=== PATIENT | male | born 1985 | race Caucasian/White ===

== ENCOUNTER 2021-05-31 13:26 | Inpatient (IN) | payer MEDICAID, OTHER ==
[~2021-05-31] VITALS: Ht 167.6 cm; Wt 74.8 kg
[~2021-05-31 13:26] MED LIST: DIVA-112 PO; RISP3TAB35 PO; ZIPR60CA2 PO
[2021-05-31] MEDS ORDERED: HALOPERIDOL 5 MG TABLET PO ONE (14:15)
[2021-05-31 14:30] LABS: BASOPHILS % (AUTO) 0.8 % (0.0-2.0); EOSINOPHILS % (AUTO) 0.9 % (1.0-6.0); HEMATOCRIT 42.2 % (41-53); HEMOGLOBIN 13.6 g/dL (13.5-17.5); LYMPHOCYTES # (AUTO) 1.4 K/uL (1.0-4.8); LYMPHOCYTES % (AUTO) 22.3 % (22.0-44.0); MEAN CORPUSCULAR HEMOGLOBIN 29.5 pg (26.0-34.0); MEAN CORPUSCULAR HGB CONC 32.3 G/dL (31.0-37.0); MEAN CORPUSCULAR VOLUME 91 fL (80-100); MONOCYTES # (AUTO) 0.4 K/uL (0.1-1.0); MONOCYTES % (AUTO) 6.3 % (2.0-9.0); NEUTROPHILS # (AUTO) 4.3 K/uL (1.8-7.7); NEUTROPHILS % (AUTO) 69.7 % (40.0-70.0); PLATELET COUNT (AUTO) 200 K/uL (150-450); RED BLOOD CELL COUNT(AUTO) 4.61 MIL/uL (4.50-5.90); RED CELL DISTRIBUTION WIDTH 14.1 % (11.5-14.5)
[2021-05-31 14:40] LABS: ANION GAP 3 mmol/L (8-16); CALCIUM, TOTAL 8.8 mg/dL (8.8-10.5); CARBON DIOXIDE 32 mmol/L (22-29); CHLORIDE 107 mmol/L (98-107); CREATININE 0.75 mg/dL (0.60-1.30); GLOMERULAR FILTR. RATE CALC > 60 mL/min (>60); GLUCOSE,RANDOM 101 mg/dL (70-110); POTASSIUM 4.7 mmol/L (3.5-5.1); SODIUM SERUM 142 mmol/L (136-145); UREA NITROGEN, BLOOD 11 mg/dL (7-18)
[2021-05-31 14:46] LABS: ALANINE AMINOTRANSFERASE 114 U/L (12-78); ALBUMIN 3.8 g/dL (3.4-5.0); ALKALINE PHOSPHATASE 129 U/L (46-116); ASPARTATE AMINOTRANSFERASE 61 U/L (15-37); BILIRUBIN,TOTAL 0.3 mg/dL (0.1-1.0); TOTAL PROTEIN, SERUM 7.2 g/dL (6.4-8.2)
[2021-05-31 14:47] LABS: VALPROIC ACID < 3 mcg/mL (50-100)
[2021-05-31 15:22] LABS: AMPHET/METH SCREEN,URINE NEGATIVE (NEGATIVE); BARBITURATE SCREEN, URINE NEGATIVE (NEGATIVE); BENZODIAZEPINES SCREEN,URINE NEGATIVE (NEGATIVE); CANNABINOID SCREEN,URINE NEGATIVE (NEGATIVE); COCAINE SCREEN,URINE NEGATIVE (NEGATIVE); METHADONE SCREEN, URINE NEGATIVE (NEGATIVE); OPIATE SCREEN,URINE NEGATIVE (NEGATIVE)
[2021-05-31 15:26] LABS: PHENCYCLIDINE SCREEN,URINE NEGATIVE (NEGATIVE)
[2021-05-31] MEDS ORDERED: ZOLPIDEM TARTRATE 10 MG TABLET PO PRN (16:00)
[2021-05-31 19:14] LABS: COVID AG,FIA SOURCE NASOPHARYNGEAL
[2021-06-01] VITALS: BP 110/70
[2021-06-01] MEDS ORDERED: MAGNESIUM HYDROXIDE SUSPENSION 30 ML UDCUP PO PRN (07:15)
[2021-06-01] MEDS ORDERED: CloNIDine HCL 0.1 MG TABLET PO PRN (07:15)
[2021-06-01] MEDS ORDERED: IBUPROFEN 400 MG TABLET PO PRN (07:15)
[2021-06-01] MEDS ORDERED: MAG HYDROX/AL HYDROX/SIMETH ES 30 ML SUSPENSION UDCUP PO PRN (07:15)
[2021-06-01] MEDS ORDERED: NICOTINE 14 MG/24 HOUR PATCH TD PRN (07:15)
[2021-06-01] MEDS ORDERED: ALBUTEROL SULFATE HFA 90 MCG/PUFF 8 GM INHALER IH PRN (07:15)
[2021-06-01] MEDS ORDERED: DOCUSATE SODIUM 100 MG CAPSULE PO PRN (07:15)
[2021-06-01] MEDS ORDERED: GuaiFENesin/D-METHORPHAN [SUGAR-FREE] 200-20MG/10 ML SYRUP UDCUP PO PRN (07:15)
[2021-06-01] MEDS ORDERED: ACETAMINOPHEN 325 MG TABLET PO PRN (07:15)
[2021-06-01] MEDS ORDERED: PETROLATUM,WHITE 28 GM JELLY TP PRN (07:15)
[2021-06-01] MEDS ORDERED: LOPERAMIDE HCL 2 MG CAPSULE PO PRN (07:15)
[2021-06-01] MEDS ORDERED: ONDANSETRON HCL 4 MG TABLET PO PRN (07:15)
[2021-06-01 08:32] LABS: CHOL/HDL RATIO 5.5 (4.2-7.3)
[2021-06-01] MEDS: HALOPERIDOL 5 MG TABLET PO PRN (11:10)
[2021-06-01] MEDS: LORazepam 2 MG TABLET PO PRN (11:10)
[2021-06-01] MEDS: FLUoxetine HCL 20 MG CAPSULE PO SCH (12:45)
[2021-06-01 15:07] VITALS: BP 101/61
[2021-06-01 16:16] VITALS: BP 111/71
[2021-06-01 20:10] VITALS: BP 112/68
[2021-06-01] MEDS: QUEtiapine FUMARATE 200 MG TABLET PO SCH (20:14)
[2021-06-01] MEDS: PRAZOSIN HCL 1 MG CAPSULE PO SCH (20:14)
[2021-06-02 05:36] VITALS: BP 101/64
[2021-06-02 08:14] VITALS: BP 112/68
[2021-06-02] MEDS: HALOPERIDOL 5 MG TABLET PO PRN (08:25)
[2021-06-02] MEDS: FLUoxetine HCL 20 MG CAPSULE PO SCH (08:25)
[2021-06-02 16:20] VITALS: BP 109/60
[2021-06-02 20:31] VITALS: BP 103/64
[2021-06-02] MEDS: PRAZOSIN HCL 1 MG CAPSULE PO SCH (20:33)
[2021-06-02] MEDS: QUEtiapine FUMARATE 200 MG TABLET PO SCH (20:33)
[2021-06-03 06:12] VITALS: BP 101/59
[2021-06-03 08:22] VITALS: BP 104/71
[2021-06-03] MEDS: FLUoxetine HCL 20 MG CAPSULE PO SCH (09:17)
[2021-06-03 16:25] VITALS: BP 107/61
[2021-06-03] MEDS: QUEtiapine FUMARATE 200 MG TABLET PO SCH (21:08)
[2021-06-03] MEDS: PRAZOSIN HCL 1 MG CAPSULE PO SCH (21:09)
[2021-06-04 05:42] VITALS: BP 112/60
[2021-06-04 08:32] VITALS: BP 116/79
[2021-06-04] MEDS: FLUoxetine HCL 20 MG CAPSULE PO SCH (08:55)
[2021-06-04 16:21] VITALS: BP 115/72
[2021-06-04] MEDS: HALOPERIDOL 5 MG TABLET PO PRN (16:23)
[2021-06-04] MEDS: PRAZOSIN HCL 1 MG CAPSULE PO SCH (20:32)
[2021-06-04] MEDS: QUEtiapine FUMARATE 200 MG TABLET PO SCH (20:32)
[2021-06-05 01:23] VITALS: BP 110/73
[2021-06-05 06:52] LABS: COVID AG,FIA SOURCE NASOPHARYNGEAL
[2021-06-05 08:27] VITALS: BP 119/75
[2021-06-05] MEDS: FLUoxetine HCL 20 MG CAPSULE PO SCH (08:58)
[2021-06-05] MEDS: HALOPERIDOL 5 MG TABLET PO PRN (14:13)
[2021-06-05] MEDS: LORazepam 2 MG TABLET PO PRN (15:51)
[2021-06-05 16:29] VITALS: BP 133/86
[2021-06-05 20:47] VITALS: BP 117/62
[2021-06-05] MEDS: QUEtiapine FUMARATE 200 MG TABLET PO SCH (20:48)
[2021-06-05] MEDS: PRAZOSIN HCL 1 MG CAPSULE PO SCH (20:49)
[2021-06-06 06:16] VITALS: BP 112/63
[2021-06-06 08:37] VITALS: BP 109/60
[2021-06-06] MEDS: FLUoxetine HCL 20 MG CAPSULE PO SCH (09:04)
[2021-06-06 16:17] VITALS: BP 116/62
[2021-06-06] MEDS: QUEtiapine FUMARATE 300 MG TABLET PO SCH (20:35)
[2021-06-06] MEDS: PRAZOSIN HCL 1 MG CAPSULE PO SCH (20:46)
[2021-06-07 01:37] VITALS: BP 110/73
[2021-06-07 08:38] VITALS: BP 114/62
[2021-06-07] MEDS: HALOPERIDOL 5 MG TABLET PO PRN ×2 (09:12→14:50)
[2021-06-07] MEDS: FLUoxetine HCL 20 MG CAPSULE PO SCH (09:12)
[2021-06-07] MEDS: OMEGA-3/DHA/EPA/FISH OIL 1,000 MG CAPSULE PO SCH (09:12)
[2021-06-07 16:18] VITALS: BP 112/72
[2021-06-07] MEDS: PRAZOSIN HCL 1 MG CAPSULE PO SCH (20:21)
[2021-06-07] MEDS: QUEtiapine FUMARATE 300 MG TABLET PO SCH (20:22)
[2021-06-07 21:00] VITALS: BP 106/59
[2021-06-08 01:13] VITALS: BP 108/62
[2021-06-08 08:14] VITALS: BP 85/53
[2021-06-08] MEDS: OMEGA-3/DHA/EPA/FISH OIL 1,000 MG CAPSULE PO SCH (08:16)
[2021-06-08] MEDS: FLUoxetine HCL 20 MG CAPSULE PO SCH (08:16)
[2021-06-08] MEDS: HALOPERIDOL 5 MG TABLET PO PRN (16:24)
[2021-06-08] MEDS: LORazepam 2 MG TABLET PO PRN (16:24)
[2021-06-08 16:26] VITALS: BP 112/63
[2021-06-08] MEDS: PRAZOSIN HCL 1 MG CAPSULE PO SCH (20:44)
[2021-06-08] MEDS: QUEtiapine FUMARATE 300 MG TABLET PO SCH (20:44)
[2021-06-09 01:01] VITALS: BP 109/61
[2021-06-09 08:16] VITALS: BP 100/64
[2021-06-09] MEDS: FLUoxetine HCL 20 MG CAPSULE PO SCH (08:30)
[2021-06-09] MEDS: OMEGA-3/DHA/EPA/FISH OIL 1,000 MG CAPSULE PO SCH (08:30)
[2021-06-09] MEDS ORDERED: FLUoxetine HCL 20 MG CAPSULE PO ONE (09:45)
[2021-06-09] MEDS: HALOPERIDOL 5 MG TABLET PO PRN (15:41)
[2021-06-09] MEDS: LORazepam 2 MG TABLET PO PRN (15:42)
[2021-06-09 16:33] VITALS: BP 118/67
[2021-06-09] MEDS: QUEtiapine FUMARATE 300 MG TABLET PO SCH (20:35)
[2021-06-09 20:36] VITALS: BP 105/65
[2021-06-09] MEDS: PRAZOSIN HCL 1 MG CAPSULE PO SCH (20:36)
[2021-06-10 01:18] VITALS: BP 100/60
[2021-06-10] MEDS: OMEGA-3/DHA/EPA/FISH OIL 1,000 MG CAPSULE PO SCH (08:07)
[2021-06-10] MEDS: FLUoxetine HCL 20 MG CAPSULE PO SCH (08:07)
[2021-06-10 08:40] VITALS: BP 136/88
[2021-06-10] MEDS: QUEtiapine FUMARATE 100 MG TABLET PO SCH (12:14)
[2021-06-10 16:34] VITALS: BP 106/65
[2021-06-10] MEDS: HALOPERIDOL 5 MG TABLET PO PRN (18:05)
[2021-06-10 20:59] VITALS: BP 115/62
[2021-06-10] MEDS: PRAZOSIN HCL 1 MG CAPSULE PO SCH (20:59)
[2021-06-10] MEDS: QUEtiapine FUMARATE 300 MG TABLET PO SCH (20:59)
[2021-06-11 01:09] VITALS: BP 111/68
[2021-06-11] MEDS: OMEGA-3/DHA/EPA/FISH OIL 1,000 MG CAPSULE PO SCH (09:40)
[2021-06-11] MEDS: FLUoxetine HCL 20 MG CAPSULE PO SCH (09:41)
[2021-06-11] MEDS: QUEtiapine FUMARATE 100 MG TABLET PO SCH (09:41)
[2021-06-11 10:49] VITALS: BP 106/62
[2021-06-11] MEDS: HALOPERIDOL 5 MG TABLET PO PRN (15:44)
[2021-06-11 16:21] VITALS: BP 120/71
[2021-06-11 20:43] VITALS: BP 116/61
[2021-06-11] MEDS: QUEtiapine FUMARATE 300 MG TABLET PO SCH (20:45)
[2021-06-11] MEDS: PRAZOSIN HCL 1 MG CAPSULE PO SCH (20:46)
[2021-06-12 01:53] VITALS: BP 105/79
[2021-06-12 08:14] VITALS: BP 107/66
[2021-06-12] MEDS: OMEGA-3/DHA/EPA/FISH OIL 1,000 MG CAPSULE PO SCH (09:49)
[2021-06-12] MEDS: FLUoxetine HCL 20 MG CAPSULE PO SCH (09:49)
[2021-06-12] MEDS: QUEtiapine FUMARATE 100 MG TABLET PO SCH (09:49)
[2021-06-12] MEDS: LORazepam 2 MG TABLET PO PRN (09:54)
[2021-06-12] MEDS ORDERED: QUET300T2 PO (12:00)
[2021-06-12] MEDS ORDERED: QUET100T PO (12:00)
[2021-06-12] MEDS ORDERED: PRAZ1 PO (12:01)
[2021-06-12] MEDS ORDERED: FLUO20CA36 PO (12:02)
[2021-06-12] MEDS ORDERED: OMEG-135 PO (12:02)
[2021-06-12 16:16] VITALS: BP 108/62
== END 2021-06-12 15:00 | disposition home or self-care (01) | DRG 750 ==
LOC: EMS 13:30 → B3A 17:27 → B2S 22:31
PROVIDERS: ADMIT Psychiatry & Neurology Psychiatry; ATTEND Psychiatry & Neurology Psychiatry
DX: F25.1 Schizoaffective disorder, depressive type (principal); R45.851 Suicidal ideations; Z59.00 Homelessness unspecified; E78.5 Hyperlipidemia, unspecified; F25.9 Schizoaffective disorder, unspecified; F90.9 Attention-deficit hyperactivity disorder, unspecified type; Z20.822 Contact with and (suspected) exposure to COVID-19; R74.01 Elevation of levels of liver transaminase levels; R10.13 Epigastric pain; F43.12 Post-traumatic stress disorder, chronic; Z91.51 Personal history of suicidal behavior
CPT/HCPCS: 80053; 80061; 80164; 85025; 99285; G0480

== ENCOUNTER 2022-04-22 12:47 | Inpatient (IN) | payer MEDICAID, OTHER ==
[~2022-04-22] VITALS: Ht 167.6 cm; Wt 69.7 kg
[~2022-04-22 12:47] MED LIST changes: -DIVA-112 PO; +FLUO20CA36 PO; +OMEG-135 PO; +PRAZ1 PO; +QUET100T PO; +QUET300T2 PO; -RISP3TAB35 PO; -ZIPR60CA2 PO
[2022-04-22 14:24] LABS: BASOPHILS % (AUTO) 0.9 % (0.0-2.0); EOSINOPHILS % (AUTO) 1.8 % (1.0-6.0); HEMATOCRIT 43.8 % (41-53); HEMOGLOBIN 14.3 g/dL (13.5-17.5); LYMPHOCYTES # (AUTO) 1.9 K/uL (1.0-4.8); LYMPHOCYTES % (AUTO) 24.3 % (22.0-44.0); MEAN CORPUSCULAR HEMOGLOBIN 29.5 pg (26.0-34.0); MEAN CORPUSCULAR HGB CONC 32.7 G/dL (31.0-37.0); MEAN CORPUSCULAR VOLUME 90 fL (80-100); MONOCYTES # (AUTO) 0.5 K/uL (0.1-1.0); MONOCYTES % (AUTO) 6.7 % (2.0-9.0); NEUTROPHILS # (AUTO) 5.3 K/uL (1.8-7.7); NEUTROPHILS % (AUTO) 66.3 % (40.0-70.0); PLATELET COUNT (AUTO) 240 K/uL (150-450); RED BLOOD CELL COUNT(AUTO) 4.84 MIL/uL (4.50-5.90); RED CELL DISTRIBUTION WIDTH 13.5 % (11.5-14.5)
[2022-04-22 14:29] LABS: ANION GAP 2 mmol/L (8-16); CALCIUM, TOTAL 9.1 mg/dL (8.8-10.5); CARBON DIOXIDE 31 mmol/L (22-29); CHLORIDE 103 mmol/L (98-107); GLOMERULAR FILTR. RATE CALC > 60 mL/min (>60); GLUCOSE,RANDOM 99 mg/dL (70-110); POTASSIUM 4.3 mmol/L (3.5-5.1); SODIUM SERUM 136 mmol/L (136-145); UREA NITROGEN, BLOOD 10 mg/dL (7-18)
[2022-04-22 14:34] LABS: ALANINE AMINOTRANSFERASE 204 U/L (12-78); ALBUMIN 3.4 g/dL (3.4-5.0); ALKALINE PHOSPHATASE 209 U/L (46-116); ASPARTATE AMINOTRANSFERASE 105 U/L (15-37); BILIRUBIN,TOTAL 0.2 mg/dL (0.1-1.0); TOTAL PROTEIN, SERUM 7.3 g/dL (6.4-8.2)
[2022-04-22] MEDS ORDERED: OLANZapine 5 MG RAPDIS TABLET PO PRN (15:15)
[2022-04-22] MEDS ORDERED: ZOLPIDEM TARTRATE 10 MG TABLET PO PRN (15:15)
[2022-04-22] MEDS ORDERED: LORazepam 2 MG TABLET PO PRN (15:15)
[2022-04-22 16:58] LABS: COVID AG,FIA SOURCE NASAL SWAB
[2022-04-22 17:01] LABS: APPEARANCE,URINE CLEAR (CLEAR); BILIRUBIN,URINE NEGATIVE (NEGATIVE); GLUCOSE, URINE (UA) NEGATIVE (NEGATIVE); KETONES,URINE NEGATIVE (NEGATIVE); LEUKOCYTE ESTERASE ,URINE NEGATIVE (NEGATIVE); NITRATE,URINE NEGATIVE (NEGATIVE); OCCULT BLOOD,URINE NEGATIVE (NEGATIVE); PROTEIN,URINE NEGATIVE (NEGATIVE); SPECIFIC GRAVITIY, URINE 1.019 (1.003-1.030); UROBILINOGEN,URINE <=1.0 mg/dL (<=1.0)
[2022-04-22 17:07] LABS: AMPHET/METH SCREEN,URINE NEGATIVE (NEGATIVE); BARBITURATE SCREEN, URINE NEGATIVE (NEGATIVE); BENZODIAZEPINES SCREEN,URINE NEGATIVE (NEGATIVE); CANNABINOID SCREEN,URINE NEGATIVE (NEGATIVE); COCAINE SCREEN,URINE NEGATIVE (NEGATIVE); METHADONE SCREEN, URINE NEGATIVE (NEGATIVE); OPIATE SCREEN,URINE NEGATIVE (NEGATIVE); PHENCYCLIDINE SCREEN,URINE NEGATIVE (NEGATIVE)
[2022-04-22 18:29] VITALS: BP 120/76
[2022-04-22] MEDS ORDERED: MAGNESIUM HYDROXIDE SUSPENSION 30 ML UDCUP PO PRN (18:30)
[2022-04-22] MEDS ORDERED: LOPERAMIDE HCL 2 MG CAPSULE PO PRN (18:30)
[2022-04-22] MEDS ORDERED: GuaiFENesin/D-METHORPHAN [SUGAR-FREE] 200-20MG/10 ML SYRUP UDCUP PO PRN (18:30)
[2022-04-22] MEDS ORDERED: PROMETHAZINE HCL 25 MG TABLET PO PRN (18:30)
[2022-04-22] MEDS ORDERED: MAG HYDROX/AL HYDROX/SIMETH ES 30 ML SUSPENSION UDCUP PO PRN (18:30)
[2022-04-22] MEDS ORDERED: TUBERCULIN, PURIFIED PROTEIN DERIVATIVE 5 TU/0.1 ML SYRINGE ID ONE (18:30)
[2022-04-22] MEDS ORDERED: OLANZapine 5 MG RAPDIS TABLET PO SCH (21:00)
[2022-04-22] MEDS: MELATONIN 5 MG TABLET PO SCH (21:18)
[2022-04-23 06:47] LABS: HEMOGLOBIN A1C 5.7 % (3.8-5.6)
[2022-04-23 07:04] LABS: CHOLESTEROL 184 mg/dL (131-200); FREE T4 (FREE THYROXINE) 0.75 ng/dL (0.76-1.46); HDL CHOLESTEROL 37 mg/dL (40-60); THYROID STIMULATING HORMONE 4.24 uIU/mL (0.36-3.74); TRIGLYCERIDES 453 mg/dL (15-150)
[2022-04-23] MEDS: FOLIC ACID 1 MG TABLET PO SCH (08:49)
[2022-04-23] MEDS: OMEGA-3/DHA/EPA/FISH OIL 1,000 MG CAPSULE PO SCH (08:49)
[2022-04-23] MEDS: MULTIVITAMINS WITH MINERALS, THERAPEUTIC TABLET PO SCH (08:49)
[2022-04-23] MEDS: THIAMINE 100 MG TABLET PO SCH ×2 (08:50→17:31)
[2022-04-23] MEDS: BuPROPion HCL XL 150 MG ER TABLET PO SCH (08:50)
[2022-04-23] MEDS: NALTREXONE HCL 50 MG TABLET PO SCH (08:50)
[2022-04-23 08:53] VITALS: BP 99/60
[2022-04-23 16:00] VITALS: BP 101/64
[2022-04-23] MEDS ORDERED: QUEtiapine FUMARATE 100 MG TABLET PO PRN (17:45)
[2022-04-23] MEDS: MELATONIN 5 MG TABLET PO SCH (20:28)
[2022-04-23] MEDS: QUEtiapine FUMARATE 300 MG TABLET PO SCH (20:29)
[2022-04-24 08:00] VITALS: BP 119/72
[2022-04-24 08:06] LABS: HEPATITIS C AB (EIA) <0.1 s/co ratio (0.0-0.9)
[2022-04-24] MEDS: THIAMINE 100 MG TABLET PO SCH ×2 (09:37→16:28)
[2022-04-24] MEDS: MULTIVITAMINS WITH MINERALS, THERAPEUTIC TABLET PO SCH (09:37)
[2022-04-24] MEDS: NALTREXONE HCL 50 MG TABLET PO SCH (09:38)
[2022-04-24] MEDS: FOLIC ACID 1 MG TABLET PO SCH (09:38)
[2022-04-24] MEDS: OMEGA-3/DHA/EPA/FISH OIL 1,000 MG CAPSULE PO SCH (09:38)
[2022-04-24] MEDS: BuPROPion HCL XL 150 MG ER TABLET PO SCH (09:38)
[2022-04-24 12:26] VITALS: BP 126/72
[2022-04-24] MEDS: ACETAMINOPHEN 325 MG TABLET PO PRN (12:26)
[2022-04-24 16:00] VITALS: BP 111/69
[2022-04-24] MEDS: GEMFIBROZIL 600 MG TABLET PO SCH (16:28)
[2022-04-24] MEDS: MELATONIN 5 MG TABLET PO SCH (21:21)
[2022-04-24] MEDS: QUEtiapine FUMARATE 300 MG TABLET PO SCH (21:21)
[2022-04-24] MEDS: HydrOXYzine PAMOATE 50 MG CAPSULE PO PRN (21:21)
[2022-04-25] MEDS: GEMFIBROZIL 600 MG TABLET PO SCH ×2 (06:45→16:46)
[2022-04-25] MEDS: OMEGA-3/DHA/EPA/FISH OIL 1,000 MG CAPSULE PO SCH (08:09)
[2022-04-25] MEDS: MULTIVITAMINS WITH MINERALS, THERAPEUTIC TABLET PO SCH (08:09)
[2022-04-25] MEDS: NALTREXONE HCL 50 MG TABLET PO SCH (08:09)
[2022-04-25] MEDS: THIAMINE 100 MG TABLET PO SCH ×2 (08:10→16:46)
[2022-04-25] MEDS: FOLIC ACID 1 MG TABLET PO SCH (08:10)
[2022-04-25] MEDS: BuPROPion HCL XL 150 MG ER TABLET PO SCH (08:10)
[2022-04-25 08:29] LABS: FREE T4 (FREE THYROXINE) 0.69 ng/dL (0.76-1.46); THYROID STIMULATING HORMONE 4.55 uIU/mL (0.36-3.74)
[2022-04-25 09:53] VITALS: BP 127/84
[2022-04-25] MEDS: LEVOTHYROXINE SODIUM 50 MCG TABLET PO SCH (11:16)
[2022-04-25 16:24] VITALS: BP 100/62
[2022-04-25 17:25] VITALS: BP 109/62
[2022-04-25] MEDS: ACETAMINOPHEN 325 MG TABLET PO PRN (17:25)
[2022-04-25] MEDS: QUEtiapine FUMARATE 300 MG TABLET PO SCH (21:55)
[2022-04-25] MEDS: HydrOXYzine PAMOATE 50 MG CAPSULE PO PRN (21:55)
[2022-04-25] MEDS: MELATONIN 5 MG TABLET PO SCH (21:55)
[2022-04-26] MEDS: GEMFIBROZIL 600 MG TABLET PO SCH ×2 (06:35→16:20)
[2022-04-26] MEDS: LEVOTHYROXINE SODIUM 50 MCG TABLET PO SCH (06:35)
[2022-04-26 08:00] VITALS: BP 115/71
[2022-04-26] MEDS: MULTIVITAMINS WITH MINERALS, THERAPEUTIC TABLET PO SCH (09:00)
[2022-04-26] MEDS: FOLIC ACID 1 MG TABLET PO SCH (09:00)
[2022-04-26] MEDS: OMEGA-3/DHA/EPA/FISH OIL 1,000 MG CAPSULE PO SCH (09:00)
[2022-04-26] MEDS: THIAMINE 100 MG TABLET PO SCH ×2 (09:00→16:20)
[2022-04-26] MEDS: BuPROPion HCL XL 150 MG ER TABLET PO SCH (09:00)
[2022-04-26] MEDS: NALTREXONE HCL 50 MG TABLET PO SCH (12:41)
[2022-04-26] MEDS ORDERED: HALOPERIDOL 5 MG TABLET PO PRN (16:15)
[2022-04-26 16:53] VITALS: BP 116/74
[2022-04-26] MEDS: MELATONIN 5 MG TABLET PO SCH (20:58)
[2022-04-26] MEDS: HALOPERIDOL 10 MG TABLET PO SCH (20:58)
[2022-04-27] MEDS: LEVOTHYROXINE SODIUM 50 MCG TABLET PO SCH (06:21)
[2022-04-27] MEDS: GEMFIBROZIL 600 MG TABLET PO SCH ×2 (06:21→16:06)
[2022-04-27 08:00] VITALS: BP 106/78
[2022-04-27] MEDS: OMEGA-3/DHA/EPA/FISH OIL 1,000 MG CAPSULE PO SCH (09:16)
[2022-04-27] MEDS: FOLIC ACID 1 MG TABLET PO SCH (09:16)
[2022-04-27] MEDS: THIAMINE 100 MG TABLET PO SCH ×2 (09:16→16:06)
[2022-04-27] MEDS: MULTIVITAMINS WITH MINERALS, THERAPEUTIC TABLET PO SCH (09:16)
[2022-04-27] MEDS: BuPROPion HCL XL 150 MG ER TABLET PO SCH (09:17)
[2022-04-27] MEDS: NALTREXONE HCL 50 MG TABLET PO SCH (09:17)
[2022-04-27 16:37] VITALS: BP 104/70
[2022-04-27] MEDS: MELATONIN 5 MG TABLET PO SCH (21:00)
[2022-04-27] MEDS: HALOPERIDOL 10 MG TABLET PO SCH (21:00)
[2022-04-28 05:57] LABS: COVID AG,FIA SOURCE NASAL SWAB
[2022-04-28] MEDS: LEVOTHYROXINE SODIUM 50 MCG TABLET PO SCH (06:24)
[2022-04-28] MEDS: GEMFIBROZIL 600 MG TABLET PO SCH ×2 (06:24→16:36)
[2022-04-28 07:55] LABS: ALBUMIN 3.3 g/dL (3.4-5.0); ALKALINE PHOSPHATASE 188 U/L (46-116); ANION GAP 4 mmol/L (8-16); ASPARTATE AMINOTRANSFERASE 74 U/L (15-37); BILIRUBIN,TOTAL 0.3 mg/dL (0.1-1.0); CALCIUM, TOTAL 9.1 mg/dL (8.8-10.5); CARBON DIOXIDE 32 mmol/L (22-29); CHLORIDE 101 mmol/L (98-107); CREATININE 0.75 mg/dL (0.60-1.30); GLUCOSE,RANDOM 92 mg/dL (70-110); POTASSIUM 5.2 mmol/L (3.5-5.1); SODIUM SERUM 137 mmol/L (136-145); TOTAL PROTEIN, SERUM 7.1 g/dL (6.4-8.2); UREA NITROGEN, BLOOD 17 mg/dL (7-18)
[2022-04-28 08:04] LABS: ALANINE AMINOTRANSFERASE 175 U/L (12-78)
[2022-04-28 08:07] LABS: GLOMERULAR FILTR. RATE CALC > 60 mL/min (>60)
[2022-04-28 09:07] VITALS: BP 119/71
[2022-04-28] MEDS: MULTIVITAMINS WITH MINERALS, THERAPEUTIC TABLET PO SCH (09:12)
[2022-04-28] MEDS: FOLIC ACID 1 MG TABLET PO SCH (09:12)
[2022-04-28] MEDS: NALTREXONE HCL 50 MG TABLET PO SCH (09:12)
[2022-04-28] MEDS: BuPROPion HCL XL 150 MG ER TABLET PO SCH (09:12)
[2022-04-28] MEDS: OMEGA-3/DHA/EPA/FISH OIL 1,000 MG CAPSULE PO SCH (09:12)
[2022-04-28] MEDS: THIAMINE 100 MG TABLET PO SCH ×2 (09:12→16:36)
[2022-04-28 16:00] VITALS: BP 115/76
[2022-04-28] MEDS: MELATONIN 5 MG TABLET PO SCH (20:09)
[2022-04-28] MEDS: HALOPERIDOL 10 MG TABLET PO SCH (20:09)
[2022-04-29] MEDS: GEMFIBROZIL 600 MG TABLET PO SCH ×2 (06:34→17:21)
[2022-04-29] MEDS: LEVOTHYROXINE SODIUM 50 MCG TABLET PO SCH (06:34)
[2022-04-29 07:54] LABS: ALANINE AMINOTRANSFERASE 164 U/L (12-78); ALBUMIN 3.5 g/dL (3.4-5.0); ALKALINE PHOSPHATASE 189 U/L (46-116); ANION GAP 2 mmol/L (8-16); ASPARTATE AMINOTRANSFERASE 70 U/L (15-37); BILIRUBIN,TOTAL 0.3 mg/dL (0.1-1.0); CALCIUM, TOTAL 9.3 mg/dL (8.8-10.5); CARBON DIOXIDE 34 mmol/L (22-29); CHLORIDE 100 mmol/L (98-107); CREATININE 0.84 mg/dL (0.60-1.30); GLOMERULAR FILTR. RATE CALC > 60 mL/min (>60); GLUCOSE,RANDOM 92 mg/dL (70-110); POTASSIUM 5.6 mmol/L (3.5-5.1); SODIUM SERUM 136 mmol/L (136-145); TOTAL PROTEIN, SERUM 7.5 g/dL (6.4-8.2); UREA NITROGEN, BLOOD 17 mg/dL (7-18)
[2022-04-29 08:00] VITALS: BP 113/69
[2022-04-29] MEDS: MULTIVITAMINS WITH MINERALS, THERAPEUTIC TABLET PO SCH (08:46)
[2022-04-29] MEDS: BuPROPion HCL XL 150 MG ER TABLET PO SCH (08:46)
[2022-04-29] MEDS: FOLIC ACID 1 MG TABLET PO SCH (08:46)
[2022-04-29] MEDS: OMEGA-3/DHA/EPA/FISH OIL 1,000 MG CAPSULE PO SCH (08:46)
[2022-04-29] MEDS: NALTREXONE HCL 50 MG TABLET PO SCH (08:47)
[2022-04-29] MEDS: THIAMINE 100 MG TABLET PO SCH ×2 (08:47→17:21)
[2022-04-29 16:06] VITALS: BP 107/67
[2022-04-29] MEDS ORDERED: SODIUM POLYSTYRENE SULFONATE 15 GM/60 ML SUSPENSION BOTTLE PO SCH (17:00)
[2022-04-29] MEDS ORDERED: HALO10TA21 PO (17:52)
[2022-04-29] MEDS ORDERED: NALT50TA PO (17:52)
[2022-04-29] MEDS ORDERED: OMEG-135 PO (17:52)
[2022-04-29] MEDS ORDERED: BUPR-49 PO (17:52)
[2022-04-29] MEDS ORDERED: MELA5TAB40 PO (17:52)
[2022-04-29] MEDS ORDERED: GEMF-77 PO (17:56)
[2022-04-29] MEDS ORDERED: LEVO125T95 PO (17:57)
[2022-04-29] MEDS ORDERED: KAYEX60 PO (17:59)
== END 2022-04-29 18:15 | disposition home or self-care (01) | DRG 750 ==
LOC: EMS 13:00 → 3EI 17:14
PROVIDERS: ADMIT Psychiatry & Neurology Psychiatry; ATTEND Psychiatry & Neurology Psychiatry
DX: F25.1 Schizoaffective disorder, depressive type (principal); R45.851 Suicidal ideations; K74.60 Unspecified cirrhosis of liver; E03.9 Hypothyroidism, unspecified; E78.1 Pure hyperglyceridemia; F43.10 Post-traumatic stress disorder, unspecified; F60.0 Paranoid personality disorder; Z20.822 Contact with and (suspected) exposure to COVID-19; J44.9 Chronic obstructive pulmonary disease, unspecified; Z55.9 Problems related to education and literacy, unspecified; Z59.9 Problem related to housing and economic circumstances, unspecified; Z63.9 Problem related to primary support group, unspecified; Z65.3 Problems related to other legal circumstances; Z87.891 Personal history of nicotine dependence
CPT/HCPCS: 80053; 80061; 80074; 81003; 83036; 84439; 84443; 85025; 86592; 99285; G0480; Q9967